=== PATIENT | female | born 2000 | race Hispanic/Latino ===

== ENCOUNTER 2022-01-09 19:55 | Emergency (ER) | payer BC ==
[~2022-01-09] VITALS: Ht 144.8 cm; Wt 77.1 kg
[2022-01-09] MEDS ORDERED: ULTRAM50 MG PO (21:55)
== END 2022-01-09 22:26 | disposition home or self-care (01) ==
LOC: FSED 20:00
DX: M25.561 Pain in right knee (principal); X50.1XXA Overexertion from prolonged static or awkward postures, initial encounter
CPT/HCPCS: 99283